=== PATIENT | male | born 1950 | race Caucasian/White ===

== ENCOUNTER → 2016-05-28 | Outpatient (CLI) | payer MEDICARE, BC ==
[~2016-05-28] VITALS: Ht 182.9 cm; Wt 102.5 kg
[~2016-05-28] MED LIST: ACIPHEX20 MG PO; ASPIRIN E.C. 8181 MG PO; CLARITIN 1010 MG/TAB PO; CORAL CALCIUM 51 CAP PO; ENALAPRIL PO; FASTIN30 MG PO; FIBER; FISH OIL1 IU PO; FLOMAX 0.40.4 MG/CAP PO; FLONASEALLERGY NS; GLUCOSAMINE & C1 TAB PO; HCTZ PO; MULTIPLE VITAMI1 CAP PO; NEXIUM 20MG20 MG PEG; NORCO 325 MG-51 TAB PO; PHENTERMINE15 MG PO; SAW PALMETTO450 MG; SAW PALMETTO80 MG PO; ULTRAM 50MG TAB50 MG PO; VITAMIN B12500 MCG PO; VITAMIN C BUFF500 MG PO; VITAMIN D32000 IU PO
[2016-05-28 15:47] VITALS: BP 118/60; PULSE 93
[2016-05-28 16:06] VITALS: BP 118/60; PULSE 93
== END ==
LOC: LIGHT 14:42
DX: E88.81 Metabolic syndrome and other insulin resistance (principal); I10 Essential (primary) hypertension; E66.09 Other obesity due to excess calories; Z68.31 Body mass index [BMI] 31.0-31.9, adult

== ENCOUNTER → 2016-07-09 | Outpatient (CLI) | payer MEDICARE, BC ==
[~2016-07-09] VITALS: Ht 182.9 cm; Wt 102.3 kg
[2016-07-09 16:52] VITALS: BP 123/53; PULSE 67
== END ==
LOC: LIGHT 14:26
DX: E88.81 Metabolic syndrome and other insulin resistance (principal); I10 Essential (primary) hypertension; E66.8 Other obesity; Z68.30 Body mass index [BMI] 30.0-30.9, adult

== ENCOUNTER → 2016-09-17 | Outpatient (CLI) | payer MEDICARE, BC ==
[~2016-09-17] VITALS: Ht 182.9 cm; Wt 102.1 kg
[2016-09-17 16:41] VITALS: BP 127/63; PULSE 68
== END ==
LOC: LIGHT 16:01
DX: Z02.89 Encounter for other administrative examinations (principal)

== ENCOUNTER → 2016-11-12 | Outpatient (CLI) | payer MEDICARE, BC ==
[~2016-11-12] VITALS: Ht 182.9 cm; Wt 102.3 kg
[2016-11-12 10:02] VITALS: BP 132/88; PULSE 80
== END ==
LOC: LIGHT 10:00
DX: E88.81 Metabolic syndrome and other insulin resistance (principal); I10 Essential (primary) hypertension; E66.9 Obesity, unspecified; Z68.30 Body mass index [BMI] 30.0-30.9, adult; Z71.3 Dietary counseling and surveillance

== ENCOUNTER → 2017-02-11 | Outpatient (CLI) | payer MEDICARE, BC ==
[~2017-02-11] VITALS: Ht 182.9 cm; Wt 104.8 kg
[~2017-02-11] MED LIST changes: +AVODART 0.5MG0.5 MG PO; +NORVASC 5MG5 MG/TAB PO; +SINGULAIR 110 MG/TAB PO
[2017-02-11 13:10] VITALS: BP 116/80; PULSE 84
== END ==
LOC: LIGHT 10:50
DX: E88.81 Metabolic syndrome and other insulin resistance (principal); I10 Essential (primary) hypertension; E66.9 Obesity, unspecified; Z68.31 Body mass index [BMI] 31.0-31.9, adult; Z71.3 Dietary counseling and surveillance

== ENCOUNTER → 2017-04-01 | Outpatient (CLI) | payer MEDICARE, BC ==
[~2017-04-01] VITALS: Ht 182.9 cm; Wt 103.6 kg
[2017-04-01 09:14] VITALS: BP 134/86; PULSE 68
== END ==
LOC: LIGHT 08:53
DX: E88.81 Metabolic syndrome and other insulin resistance (principal); I10 Essential (primary) hypertension; E66.9 Obesity, unspecified; Z68.31 Body mass index [BMI] 31.0-31.9, adult; Z71.3 Dietary counseling and surveillance

== ENCOUNTER → 2017-04-29 | Outpatient (CLI) | payer MEDICARE, BC ==
[~2017-04-29] VITALS: Ht 182.9 cm; Wt 104.6 kg
[2017-04-29 13:56] VITALS: BP 122/86; PULSE 88
== END ==
LOC: LIGHT 12:32
DX: E88.81 Metabolic syndrome and other insulin resistance (principal); I10 Essential (primary) hypertension; E66.9 Obesity, unspecified; Z68.31 Body mass index [BMI] 31.0-31.9, adult; Z71.3 Dietary counseling and surveillance
CPT/HCPCS: G0463

== ENCOUNTER → 2017-05-27 | Outpatient (CLI) | payer MEDICARE, BC ==
[~2017-05-27] VITALS: Ht 182.9 cm; Wt 103.4 kg
[2017-05-27 15:36] VITALS: BP 132/78; PULSE 92
== END ==
LOC: LIGHT 11:35
DX: E88.81 Metabolic syndrome and other insulin resistance (principal); I10 Essential (primary) hypertension; E66.9 Obesity, unspecified; Z68.30 Body mass index [BMI] 30.0-30.9, adult; Z71.3 Dietary counseling and surveillance
CPT/HCPCS: G0463

== ENCOUNTER → 2017-06-24 | Outpatient (CLI) | payer MEDICARE, BC ==
[~2017-06-24] VITALS: Ht 182.9 cm; Wt 105.9 kg
[2017-06-24 15:25] VITALS: BP 130/80; PULSE 72
== END ==
LOC: LIGHT 09:18
DX: E88.81 Metabolic syndrome and other insulin resistance (principal); I10 Essential (primary) hypertension; E66.9 Obesity, unspecified; Z68.31 Body mass index [BMI] 31.0-31.9, adult; Z71.3 Dietary counseling and surveillance
CPT/HCPCS: G0463

== ENCOUNTER → 2017-09-02 | Outpatient (CLI) | payer MEDICARE, BC ==
[~2017-09-02] VITALS: Ht 182.9 cm; Wt 104.3 kg
[2017-09-02 10:01] VITALS: BP 112/80; PULSE 76
== END ==
LOC: LIGHT 08-05 09:48
DX: E88.81 Metabolic syndrome and other insulin resistance (principal); I10 Essential (primary) hypertension; E66.9 Obesity, unspecified; Z68.31 Body mass index [BMI] 31.0-31.9, adult; Z71.3 Dietary counseling and surveillance
CPT/HCPCS: G0463

== ENCOUNTER → 2017-11-25 | Outpatient (CLI) | payer MEDICARE, BC ==
[~2017-11-25] VITALS: Ht 182.9 cm; Wt 105.9 kg
[2017-11-25 10:06] VITALS: BP 124/72; PULSE 72
== END ==
LOC: LIGHT 09:51
DX: E88.81 Metabolic syndrome and other insulin resistance (principal); I10 Essential (primary) hypertension; E66.9 Obesity, unspecified; Z68.31 Body mass index [BMI] 31.0-31.9, adult; Z71.3 Dietary counseling and surveillance
CPT/HCPCS: G0463

== ENCOUNTER → 2018-01-27 | Outpatient (CLI) | payer MEDICARE, BC ==
[~2018-01-27] VITALS: Ht 182.9 cm; Wt 106.8 kg
[~2018-01-27] MED LIST changes: +HYTRIN 1MG C1 MG/CAP PO
[2018-01-27 11:04] VITALS: BP 124/80; PULSE 80
== END ==
LOC: LIGHT 12-30 08:23
DX: E88.81 Metabolic syndrome and other insulin resistance (principal); E66.9 Obesity, unspecified; I10 Essential (primary) hypertension; Z68.31 Body mass index [BMI] 31.0-31.9, adult; Z71.3 Dietary counseling and surveillance
CPT/HCPCS: G0463

== ENCOUNTER → 2018-03-03 | Outpatient (CLI) | payer MEDICARE, BC ==
[~2018-03-03] VITALS: Ht 182.9 cm; Wt 106.6 kg
[2018-03-03 15:18] VITALS: BP 114/74; PULSE 96
== END ==
LOC: LIGHT 11:48
DX: E88.81 Metabolic syndrome and other insulin resistance (principal); I10 Essential (primary) hypertension; E66.9 Obesity, unspecified; Z68.31 Body mass index [BMI] 31.0-31.9, adult; Z71.3 Dietary counseling and surveillance
CPT/HCPCS: G0463

== ENCOUNTER → 2020-09-13 | Outpatient (CLI) | payer MEDICARE, BC | LOC: ZCOL.LAB 11:18 | DX: Z01.818 Encounter for other preprocedural examination (principal) ==

== ENCOUNTER → 2020-09-23 | Outpatient (CLI) | payer MEDICARE, BC | LOC: ZCOL.LAB 09:37 | DX: Z01.812 Encounter for preprocedural laboratory examination (principal); Z20.822 Contact with and (suspected) exposure to COVID-19 ==

== ENCOUNTER 2021-10-03 07:20 | Outpatient (CLI) | payer MEDICARE, BC ==
[~2021-10-03] VITALS: Ht 183 cm; Wt 106.0 kg
[2021-10-03] VITALS (9 sets, daily range): BP systolic 89–121; BP diastolic 41–95; PULSE 48–64; TEMP 98.2
[~2021-10-03 07:20] MED LIST changes: -ENALAPRIL PO; -HCTZ PO; -MULTIPLE VITAMI1 CAP PO; +MULTIPLE VITAMI1 TA5 PO; +VASERETIC 10 MG1 TAB PO
[2021-10-03 07:55] LABS: HEMATOCRIT 42.4 % (42.0-52.0); HEMOGLOBIN 14.1 g/dl (13.5-18.0); MEAN CELL VOLUME 91 fl (80.0-100.0); MEAN CORPUSCULAR HEMOGLOBIN 30 pg (27-31); MEAN CORPUSCULAR HGB CONC 33 g/dl (33.0-37.0); MEAN PLATELET VOLUME 10.7 fl (7.4-10.4); PLATELET COUNT 283 K/mm3 (130-400); RED BLOOD COUNT 4.67 M/mm3 (4.20-5.60); REDCELL DISTRIBUTION WIDTH-CV 12.8 % (11.5-14.5)
[2021-10-03] MEDS ORDERED: LIPITOR 10MG10 MG PO (07:57)
[2021-10-03] MEDS ORDERED: ELIQUIS 5MG PO (07:58)
[2021-10-03] MEDS ORDERED: TOPROL XL 25MG25 MG PO (08:00)
[2021-10-03] MEDS ORDERED: PRIL40 PO (08:01)
[2021-10-03] MEDS ORDERED: FLOMAX 0.40.4 MG/CAP PO (08:03)
[2021-10-03] MEDS ORDERED: FIBER GUMMIES2.5 GM PO (08:05)
[2021-10-03] MEDS ORDERED: FLAXSEED OIL1000 MG PO (08:06)
[2021-10-03 08:17] LABS: INR 1.6 (0.8-3.0)
[2021-10-03 08:30] LABS: CALCIUM 9.6 mg/dL (8.4-10.2); CREATININE, serum 1.14 mg/dL (0.72-1.25); POTASSIUM 3.9 mmol/L (3.5-4.5)
--- NOTE | 2021-10-03 13:00 | NUR ---
Pt has done well during his post procedure monitoring. Pt has remained awake and alert, pwd, with reg and unlabored resps. Sipping water and ate applesauce with no problems swallowing. Dr. Araujo has been in to see pt and discuss poc, including plan to stop metoprolol. I have reviewed dc/rx and fu instructions with pt and also, and they verbalized understanding. Pt has been up and is steady on his feet. I escorted him to exit via wheelchair.
== END 2021-10-03 14:21 | disposition home or self-care (01) ==
LOC: COL.RAD 07:20
PROVIDERS: Internal Medicine Adult Congenital Heart Disease
DX: I51.7 Cardiomegaly (principal); I35.1 Nonrheumatic aortic (valve) insufficiency; I48.91 Unspecified atrial fibrillation; Z98.890 Other specified postprocedural states
CPT/HCPCS: J0330; J2704; J7120

== ENCOUNTER 2021-12-11 11:41 | Outpatient (CLI) | payer MEDICARE, BC ==
[~2021-12-11] VITALS: Ht 183 cm; Wt 106.9 kg
[~2021-12-11 11:41] MED LIST changes: +ELIQUIS 5MG PO; +FIBER GUMMIES2.5 GM PO; +FLAXSEED OIL1000 MG PO; +LIPITOR 10MG10 MG PO; +PRIL40 PO; +TOPROL XL 25MG25 MG PO
[2021-12-11 12:09] LABS: HEMATOCRIT 37.9 % (42.0-52.0); HEMOGLOBIN 12.7 g/dl (13.5-18.0); MEAN CELL VOLUME 91 fl (80.0-100.0); MEAN CORPUSCULAR HEMOGLOBIN 31 pg (27-31); MEAN CORPUSCULAR HGB CONC 34 g/dl (33.0-37.0); MEAN PLATELET VOLUME 10.4 fl (7.4-10.4); PLATELET COUNT 315 K/mm3 (130-400); RED BLOOD COUNT 4.17 M/mm3 (4.20-5.60); REDCELL DISTRIBUTION WIDTH-CV 12.5 % (11.5-14.5)
[2021-12-11 12:16] LABS: INR 1.5 (0.8-3.0); PROTHROMBIN TIME 16.8 SECONDS (9.7-12.8)
[2021-12-11] MEDS ORDERED: ASPIRIN E.C. 8181 MG PO (12:17)
[2021-12-11 12:24] LABS: CALCIUM 9.1 mg/dL (8.4-10.2); CREATININE, serum 0.96 mg/dL (0.72-1.25)
[2021-12-11 12:26] VITALS: BP 123/64; PULSE 69; TEMP 98.3
[2021-12-11 13:56] VITALS: BP 129/68; PULSE 67
[2021-12-11] MEDS ORDERED: PLAVIX 75MG TAB75 MG PO (13:56)
[2021-12-11 13:58] VITALS: BP 115/68; PULSE 64
--- NOTE | 2021-12-11 14:00 | NUR ---
rEPORT FROM [facility]
[2021-12-11 14:15] VITALS: BP 130/56; PULSE 64
[2021-12-11 14:31] VITALS: BP 127/72; PULSE 60
[2021-12-11 14:45] VITALS: BP 132/76; PULSE 64
--- NOTE | 2021-12-11 15:26 | NUR ---
Discharge instructions given to pt.pt verbalizes understanding.Pt escorted out via wheelchair by this nurse.
== END 2021-12-11 16:40 ==
LOC: COL.RAD 11:41
PROVIDERS: Internal Medicine Adult Congenital Heart Disease
DX: I08.0 Rheumatic disorders of both mitral and aortic valves (principal); I48.91 Unspecified atrial fibrillation
CPT/HCPCS: J2704